=== PATIENT | male | born 1955 | race Caucasian/White ===

== ENCOUNTER 2019-03-25 21:01 | Inpatient (IN) | payer BC ==
[2019-03-25] MEDS ORDERED: FUROSEMIDE20 MG PO (21:08)
[2019-03-25] MEDS ORDERED: ADVAIR 250/501 DISK INH (21:14)
[2019-03-25 21:36] LABS: BASOPHILS 0.5 % (0-2); EOSINOPHILS 4.3 % (0-7); HEMATOCRIT 39.1 % (42.0-54.0); HEMOGLOBIN 12.9 g/dL (13.5-17.5); IMMATURE GRANULOCYTES 0.2 % (0-5); LYMPHOCYTES 29.3 % (15-50); MCH 29.3 pg (26.0-34.0); MCV 88.7 fL (80.0-100.0); MEAN PLATELET VOLUME 8.9 fL (7.4-10.4); MONOCYTES 11.4 % (2-11); NEUTROPHILS 54.3 % (40-80); PLATELET COUNT 177 10x3/uL (130-400); RBC 4.41 10x6/uL (4.20-6.10); WBC 6.1 10x3/uL (4.8-10.8)
[2019-03-25 21:44] LABS: APTT 26.7 SECONDS (22.8-39.4); INR 1.03 (0.85-1.17)
[2019-03-25 21:49] LABS: ALBUMIN 3.5 g/dL (3.4-5.0); ALKALINE PHOSPHATASE 140 U/L (46-116); ALT (SGPT) 21 U/L (10-68); CALC OSMOLALITY 280 mosm/kg (275-300); CALCIUM 8.9 mg/dL (8.5-10.1); CARBON DIOXIDE 24.7 mmol/L (21.0-32.0); CHLORIDE - SERUM 106 mmol/L (98-107); CREATININE - SERUM 1.1 mg/dL (0.6-1.3); GLUCOSE 93 mg/dL (74-106); POTASSIUM - SERUM 5.2 mmol/L (3.5-5.1); SODIUM 140 mmol/L (136-145); UREA NITROGEN 17 mg/dL (7-18); eGFR NON AFRICAN AMERICAN 71 mL/min (90-120)
[2019-03-25 22:01] LABS: CREATINE KINASE 130 UL (21-232); PRO BNP 48 pg/mL (0-125); TROPONIN-I < 0.017 ng/mL (0.000-0.060)
--- NOTE | 2019-03-25 22:39 | NUR ---
REPORT RECIEVED FROM EBER IN ER.
[2019-03-25 23:55] VITALS: BP 103/67
[2019-03-26 00:38] VITALS: BP 103/67; BMI 26.2
--- NOTE | 2019-03-26 03:27 | NUR ---
I have reviewed this patient and I concur with the Shift Assessment completed by the Licensed Practical Nurse today this shift.
[2019-03-26 03:55] VITALS: BP 98/66
--- NOTE | 2019-03-26 04:13 | NUR ---
PT RESTING WITH NO DISTRESS. NPO UNTIL SEEN BY MD IN AM. MONITOR AND CPOC.
[2019-03-26 08:05] VITALS: BP 99/62
--- NOTE | 2019-03-26 08:16 | NUR ---
AM ROUNDS COMPLETED. INTRODUCED MYSELF TO PT PRIMARY RN FOR TODAYS SHIFT. PT IS A&O LYING BACK IN BED RESTING QUIETLY WITH FAMILY AT BEDSIDE. SHIFT ASSESSMENT COMPLETED. PT STATES HE IS FEELING MUCH BETTER AFTER HIS BREATHING TREATMENT. DENIES ANY SOB OR ISSUES BREATHING. RR NONLABORED ON RA. PT IS CURRENTLY NPO HE HAD A PROCEDURE PLANNED IN OUTPATIENT WITH . WILL NOTIFY AND OUTPATIENT AND CPOC.
--- NOTE | 2019-03-26 08:27 | NUR ---
NOTIFIED JUAN DIEGO SARMIENTO WITH AND WILL KEEP PT NPO UNTIL WE FIND OUT ABOUT IF HE WILL STILL HAVE PROCEDURE. WILL ALSO FIND OUT ABOUT MORNING LABS. NO CURRENT NEEDS. PT VERBALIZED UNDERSTANDING.
[2019-03-26 09:43] LABS: BASOPHILS 0.5 % (0-2); EOSINOPHILS 3.5 % (0-7); HEMATOCRIT 38.9 % (42.0-54.0); HEMOGLOBIN 12.9 g/dL (13.5-17.5); LYMPHOCYTES 24.5 % (15-50); MCH 29.5 pg (26.0-34.0); MCHC 33.2 g/dL (31.0-37.0); MCV 88.8 fL (80.0-100.0); MEAN PLATELET VOLUME 8.3 fL (7.4-10.4); MONOCYTES 11.2 % (2-11); NEUTROPHILS 60.3 % (40-80); PLATELET COUNT 153 10x3/uL (130-400); RBC 4.38 10x6/uL (4.20-6.10); RDW 17.8 % (11.5-14.5); WBC 6.3 10x3/uL (4.8-10.8)
[2019-03-26 10:04] LABS: ALBUMIN 3.5 g/dL (3.4-5.0); ALKALINE PHOSPHATASE 129 U/L (46-116); ALT (SGPT) 19 U/L (10-68); BILIRUBIN - TOTAL 0.62 mg/dL (0.2-1.3); CALC OSMOLALITY 283 mosm/kg (275-300); CALCIUM 9.1 mg/dL (8.5-10.1); CHLORIDE - SERUM 108 mmol/L (98-107); GLUCOSE 94 mg/dL (74-106); POTASSIUM - SERUM 4.7 mmol/L (3.5-5.1); PROTEIN - SERUM 6.8 g/dL (6.4-8.2); SODIUM 142 mmol/L (136-145); UREA NITROGEN 15 mg/dL (7-18); eGFR NON AFRICAN AMERICAN 80 mL/min (90-120)
[2019-03-26 10:06] LABS: APTT 27.9 SECONDS (22.8-39.4); INR 1.04 (0.85-1.17); PROTIME 13.1 SECONDS (11.6-15.0)
--- NOTE | 2019-03-26 10:19 | NUR ---
CONSENTS OBTAINED AND PLACED IN CHART FOR PROCEDURE WITH TODAY. PT VERBALIZED UNDERSTANDING AND DENIES ANY QUESTIONS OR CONCERNS. PT IS STILL NEEDING HIS HIBICLENS SHOWER SO I WRAPPED HIS PIV AND ASSISTED HIM WITH SUPPLIES. COMMUNITY SERVICE WORKER AT BEDSIDE TO PREP AND CLIP. WILL GET CHART READY AND CPOC.
--- NOTE | 2019-03-26 10:43 | NUR ---
VERIFIED HOME MEDICATION AND PHARMACY. UPDATED WEIGHT AND HEIGHT AND PLACED ON CHART ORDERED AND MOST ACCURATE. PT IS SHOWERED AND READY FOR PROCEDURE. CONFIRMED EKG ON CHART AND CONSENTS SIGNED. NO FURTHER NEEDS.
[2019-03-26 11:38] VITALS: BP 104/64
--- NOTE | 2019-03-26 14:06 | NUR ---
SURGERY CALLED TO PRE-OP PT. PRE-OP MEDICATIONS GIVEN AND ANBX PIGGYBACK SENT TO "OR" WITH PT. NO FURTHER NEEDS AT THIS TIME.
--- NOTE | 2019-03-26 17:47 | NUR ---
PT BACK FROM PROCEDURE AWAKE A&O SITTING UP IN BED. PT HAS A DRSG TO HIS MID-UPPER STERNUM CDI, TO REMAIN IN PLACE UNTIL TUESDAY PER . VSS AND BEING MONITERED PER POST PROCEDURE. PT IS TO STAY OVERNIGHT AND SHOULD BE ABLE TO D/C TOMORROW. PT IS C/O PAIN AND REQUESTING PRN PAIN MEDICATION, PAGED ERIKA MONZON, HIGH SCHOOL FOREIGN LANGUAGE TEACHER ANIMAL PATHOLOGIST AND WILL AWAIT CALL BACK. FAMILY AT BEDSIDE. NO CURRENT NEEDS. WILL CTM.
--- NOTE | 2019-03-26 18:45 | NUR ---
VSS AND STILL BEING MONITERED PER POST PROCEDURE PROTOCOL. DID OBTAIN ORDER FOR PRN PAIN PILL AND BEDSIDE SHIFT REPORT GIVEN AND NIGHTSHIFT NURSE WILL PROVIDE TO PT. PT VOICED THANKS AND IS EATING DINNER. DENIES ANY FURTHER NEEDS.
[2019-03-26 20:00] VITALS: BP 109/67
[2019-03-26 21:32] LABS: APPEARANCE CLEAR (CLEAR); BILIRUBIN NEGATIVE (NEGATIVE); COLOR YELLOW (YELLOW); GLUCOSE NEGATIVE (NEGATIVE); KETONE NEGATIVE (NEGATIVE); NITRITE NEGATIVE (NEGATIVE); PROTEIN NEGATIVE (NEGATIVE); UROBILINOGEN NORMAL (NORMAL)
--- NOTE | 2019-03-27 00:45 | NUR ---
AWAKE AND ALERT CHANGED IV TO SALINE LOCK LCTA BUT DEMINISHED IN LOWER BASESPT ASKS FOR PRN PAIN MED AND WILL RECIEVE BED LOW AND LOCKED AND CALL LIGHT IN REACH USING URINAL
--- NOTE | 2019-03-27 02:21 | NUR ---
I have reviewed this patient and I concur with the Shift Assessment completed by the Licensed Practical Nurse today this shift.
[2019-03-27 04:00] VITALS: BP 112/69
[2019-03-27] MEDS ORDERED: ULTRAM50 MG PO (08:36)
[2019-03-27 08:49] VITALS: BP 106/66
--- NOTE | 2019-03-27 10:33 | NUR ---
D/C PTS L.HAND PIV WITH CATHETER TIP FULLY INTACT ALONG WITH L.AC PIV WITH CATHETER TIP FULLY INTACT. PT IS COLLECTING HIS BELONGINGS FOR DISCHARGE AND I HAVE SPOKE WITH NURSE ABOUT PAIN MEDICATION AND I WILL CALL IT IN.
--- NOTE | 2019-03-27 11:21 | NUR ---
DISCHARGE TEACHING PROVIDED AND PAPERS SIGNED. PT VERBALIZED UNDERSTANDING AND DENIES ANY QUESTIONS OR CONCERNS. ALL BELONGINGS COLLECTED. PT WAITING ON TRANSPORT.
--- NOTE | 2019-03-27 12:30 | NUR ---
SPOKE TO CRISTIANE AT [facility] AND CALLED IN PTS TRAMADOL ORDER PER .
--- NOTE | 2019-03-27 13:53 | MORECARE ---
CASE MANAGEMENT DISCHARGE SUMMARY PATIENT: DIXON RIZO UNIT: [id number] ADM DATE: 03/25/19 AGE: 63 : 51 SEX: M ROOM/BED: D.211 AUTHOR: NICOLAS MCCRAY PHYSICIAN: REFERRING PHYSICIAN: ROCAEL DAVIS MD DATE OF SERVICE: 03/27/19 Discharge Plan Patient Name: DIXON RIZO [facility] : 1955 Planned Disposition: Home Anticipated Discharge Date: 03/27/19 Discharge Date: 03/27/2019 Expected LOS: 2 Initial Reviewer: [email or web address] Initial Review Date: 03/27/2019 Generated: 03/27/19 2:52 pm Patient Name: DIXON RIZO Page 16994 at 1353 All edits/amendments must be made on the electronic document DICTATION DATE: 03/27/19 1352 FINISH PRODUCTION MANAGER: JOSSELIN 03/27/19 1352 RPT#: [id number] DC DATE:03/27/19 STATUS: DIS IN [facility] [address] [place] [address] END OF REPORT
--- NOTE | 2019-03-27 14:01 | MORECARE ---
CASE MANAGEMENT DISCHARGE SUMMARY PATIENT: DIXON RIZO UNIT: [id number] ADM DATE: 03/25/19 AGE: 63 : 51 SEX: M ROOM/BED: D.2112 AUTHOR: SHAZIA,DOC PHYSICIAN: REFERRING PHYSICIAN: ROCAEL DAVIS MD DATE OF SERVICE: 03/27/19 Discharge Plan Patient Name: DIXON RIZO Facility: [facility]:[place] : 1955 Planned Disposition: Home Anticipated Discharge Date: 03/27/19 Discharge Date: 03/27/2019 Expected LOS: 2 Initial Reviewer: [email or web address] Initial Review Date: 03/27/2019 Generated: 03/27/19 3:01 pm Comments DCP- Discharge Planning Updated by [email or web address]: Jah Martinez on 03/27/19 12:[address] Patient Name: DIXON RIZO Admission Status: ER Accout number: [id number] Admission Date: 03-25-2019 : 1955 Admission Diagnosis: Attending: ROCAEL DAVIS Current LOS: 2 Anticipated DC Date: 03-27-2019 Planned Disposition: Home Primary Insurance: [employer] OUT OF STATE Discharge Planning Comments: CM MET WITH PT IN ROOM TO DISCUSS DISCHARGE PLANNING AND NEEDS. PT REPORTS LIVING AT HOME INDEPENDENTLY WITH HIS SIGNIFICANT OTHER. PT HAS NO MEDICAL EQUIPMENT AND NO OUTSIDE SERVICES ASSISTING IN THE HOME. CM DISCUSSED AVAILABILITY OF HOME HEALTH, REHAB SERVICES AND MEDICAL EQUIPMENT. PT DENIES DISCHARGE NEEDS, REPORTS HIS FRIEND IS HERE TO PICK HIM UP FOR DISCHARGE HOME. LAST REPAIRER NURSE NOTIFIED. Generator Operator Straight Bevel Gear: Jah Martinez DCPIA - Discharge Planning Initial Assessment Updated by [email or web address]: Jah Martinez on 03/27/19 1:53 pm * Is the patient Alert and Oriented? Yes * How many steps to enter\exit or inside your home? * PCP DR. MONET * Pharmacy [facility] * Preadmission Environment Home with Family * ADLs Independent * Equipment None * Other Equipment NO MEDICAL EQUIPMENT PROVIDER PREFERENCE * List name and contact numbers for known caregivers / representatives who currently or will assist patient after discharge: KATHERINE ESPINOSA, SIGNIFICANT OTHER, * Verbal permission to speak to the caregivers and representatives has been obtained from the patient. N/A * Community resources currently utilized None * Please name any agencies selected above. NONE * Additional services required to return to the preadmission environment? No * Can the patient safely return to the preadmission environment? Yes * Has this patient been hospitalized within the prior 30 days at any hospital? Yes Last DP export: 03/27/19 12:53 p Patient Name: DIXON RIZO Page [id number] at 1401 All edits/amendments must be made on the electronic document DICTATION DATE: 03/27/19 1401 EXERCISE PHYSIOLOGIST: JOSSELIN 03/27/19 1401 RPT#: [id number] DC DATE:03/27/19 STATUS: DIS IN [facility] [address] [place] [address] END OF REPORT
--- NOTE | 2019-04-04 13:11 | OP ---
PATIENT NAME: DIXON RIZO MEDICAL RECORD: [id number] :[birth year] LOCATION:D.M2 D.2111 ADMISSION DATE:03/25/19 SURGEON: SHAJI CASANOVA MD DATE OF OPERATION: 03/26/2019 SURGEON: Shaji Casanova MD ANESTHESIA: General; Mario Worrell MD OPERATIONS PERFORMED: 1. Mediastinoscopy with biopsy. 2. Flexible fiberoptic bronchoscopy. PREOPERATIVE DIAGNOSIS: Nonsmall cell carcinoma, left lower lobe. POSTOPERATIVE DIAGNOSIS: Nonsmall cell carcinoma, left lower lobe. INDICATION FOR OPERATION: Positive PET scan, right paratracheal lymph node. FINDINGS AT OPERATION: Right benign-appearing paratracheal node. Multiple biopsies were taken. Frozen section was benign. There were no other nodes identified. ESTIMATED BLOOD LOSS: Less than 3 cc. DESCRIPTION OF PROCEDURE: After informed consent, adequate preoperative medication, and evaluation, the patient was brought to the operating room and placed on the table in supine position. After induction of general endotracheal anesthesia and application of appropriate monitoring devices, the neck and chest were prepped and draped in sterile field utilizing Betadine scrub, alcohol, and Betadine solution. Betadine-impregnated drape was also used. A small transverse incision was made 2 cm below the sternal notch. Dissection was carried down to the tracheal fascia. The fascia was opened. The scope was introduced and advanced utilizing sharp and blunt dissection. The right paratracheal area just above the right mainstem bronchus was dissected and a large lymph node was identified. This was aspirated. No bleeding. Multiple biopsies were taken. Frozen section demonstrated a benign node. It was a benign-appearing node. Neck was irrigated. Instrument count and sponge count were correct times 2. Neck was closed in layers utilizing 3-0 Vicryl on the platysma and 5-0 subcuticular Monocryl on the skin. Sterile dressings were applied. The patient then underwent flexible fiberoptic bronchoscopy and there were no endobronchial lesions noted. TRANSINT:[id number] Voice Confirmation ID: [id number] DOCUMENT ID: [id number] SHAJI CASANOVA MD at 1311 CC: [id number] DICTATION DATE: 03/26/19 1632 EMBOSSING CALENDER OPERATOR: 03/26/192009 DIS IN 03/27/[address] [place] [address]
== END 2019-03-27 12:42 | disposition home or self-care (01) | DRG 168 ==
LOC: D.ER 21:01 → D.M2 21:38
PROVIDERS: Family Medicine; Internal Medicine Cardiovascular Disease; ADMIT Internal Medicine Nephrology; ATTEND Internal Medicine Nephrology
PROC: 07B74ZX Excision of Thorax Lymphatic, Percutaneous Endoscopic Approach, Diagnostic (ICD-10-PCS; principal; 2019-03-26)
PROC: 0BJ08ZZ Inspection of Tracheobronchial Tree, Via Natural or Artificial Opening Endoscopic (ICD-10-PCS; 2019-03-26)
DX: C34.90 Malignant neoplasm of unspecified part of unspecified bronchus or lung (principal); R06.00 Dyspnea, unspecified; J44.9 Chronic obstructive pulmonary disease, unspecified

== ENCOUNTER 2019-04-09 13:36 | Inpatient (IN) | payer BC, MEDICARE ==
[~2019-04-09] VITALS: Ht 193 cm; Wt 98.7 kg
--- NOTE | ~2019-04-09 | OP ---
PATIENT NAME: DIXON RIZO MEDICAL RECORD: [id number] :51 LOCATION:[facility] D.CV08 ADMISSION DATE:04/13/19 SURGEON: MICH REYNAGA MD DATE OF OPERATION: 04/13/2019 SURGEON: Mich Reynaga MD DIRECTOR OF RELIGIOUS ACTIVITIES: Korey Mota MD ANESTHESIA: General endotracheal, Dr. Kendall. OPERATION PERFORMED: 1. Left thoracotomy and left lower and lingular lobe resection. 2. Left mediastinal lymphadenectomy. 3. Flexible fiberoptic bronchoscopy. PREOPERATIVE DIAGNOSIS: Non-small cell carcinoma of left lower lobe. POSTOPERATIVE DIAGNOSIS: Left lower lobe tumor invading the lingula. INDICATION FOR OPERATION: Carcinoma of the left lower lobe. FINDINGS OF THE OPERATION: The tumor in the left lower lobe was invading the distal lingula. There were no nodes at level 6 or level 5 identified. There was an N1 node posterior to the main stem bronchus that was sent separately. The rest of the level 10 nodes were sent with the specimen. There were no nodes at level 8 or 9. ESTIMATED BLOOD LOSS: Less than 150 mL. DESCRIPTION OF PROCEDURE: After informed consent, adequate preoperative medication evaluation, the patient was brought to the operating room, placed on the table in the supine position. After induction of general endotracheal anesthesia and application of appropriate monitoring devices, the patient underwent flexible fiberoptic bronchoscopy and placement of a double lumen tube. The patient was then turned in a right lateral decubitus position, protecting the pressure points and neurological structures. The left chest was then prepped and draped in a sterile field, utilizing Betadine scrub, alcohol, and Betadine solution. Betadine-impregnated drape was also used. A small posterolateral thoracotomy incision was made and dissection carried down the fascia. Hemostasis maintained with electrocautery. The fifth interspace was opened. The chest entered. There were small adhesions to the pericardium that were lysed with the Harmonic scalpel. There was neovascularization in the inferior pulmonary ligament. This was also divided to the level of the inferior pulmonary vein utilizing the Harmonic scalpel. The inferior pulmonary vein was then dissected free of surrounding structures and encircled with a vessel loop. The fissure was incomplete and the tumor appeared to cross into the left lingula. Dissection was then carried out in the major fissure. Dissection carried down to the bronchus and dissection carried down to the pulmonary artery. The pulmonary artery was then dissected medially, laterally and inferiorly and encircled with a vessel loop. The lymph nodes were dissected with the lower lobe. Dr. Mota participated in the dissection and resection of the lower and lingular lobe as well as the mediastinal dissection. The dissection was then carried out OPERATIVE REPORT [id number] DARRIUSDIXON WONG anteriorly around the bronchus and the bronchi to the lower lobe identified. The pulmonary artery was then divided with an Endo-ASHOK stapler as well as the inferior pulmonary vein. Dissection was then carried out around the bronchi. The bronchi were divided with a TA 34.8 stapler. The specimen was then sent to pathology. The chest was irrigated. Careful dissection was made at the level 5-6 area with no nodes identified. There were no lymph nodes at level 7. The dissection posteriorly was an N1 node that was sent to pathology, 9 and level 8 had no lymph nodes however. The chest was again irrigated. Instrument count and sponge count were correct times 2. A #28 chest tube was placed anteriorly and superiorly and a 28 tube inferiorly and posteriorly. Chest was again irrigated. Instrument count and sponge count were correct times 2. Chest was closed in layers utilizing #2 Vicryl pericostal sutures, #1 Vicryl on the muscle, 2-0 Vicryl on subcutaneous tissue and skin approximated with 3-0 subcuticular Vicryl. Sterile dressings were applied. The patient tolerated the procedure well and was placed in the supine position. The patient underwent flexible fiberoptic bronchoscopy. The lower lobe stump was satisfactory and there was no endobronchial lesion on either side of mucus or blood. The scope was removed. The patient was awakened and transferred to the CV ICU in satisfactory condition. TRANSINT:[id number] Voice Confirmation ID: [id number] DOCUMENT ID: [id number] MICH REYNAGA MD CC: [id number] DICTATION DATE: 04/13/19 1209 SURVEYING TECHNICIAN: 04/13/19 1340 ADM IN [facility] [id number] [place] [address]
[~2019-04-09 13:36] MED LIST: ADVAIR 250/501 DISK INH; FUROSEMIDE20 MG PO; ULTRAM50 MG PO
[2019-04-10] MEDS ORDERED: KLONOPIN1 MG PO (12:38)
[2019-04-10 13:21] LABS: HEMATOCRIT 40.7 % (42.0-54.0); HEMOGLOBIN 13.3 g/dL (13.5-17.5); MCH 29.5 pg (26.0-34.0); MCHC 32.7 g/dL (31.0-37.0); MCV 90.2 fL (80.0-100.0); MEAN PLATELET VOLUME 8.6 fL (7.4-10.4); RBC 4.51 10x6/uL (4.20-6.10); RDW 15.4 % (11.5-14.5); WBC 7.3 10x3/uL (4.8-10.8)
[2019-04-10 13:22] LABS: APPEARANCE CLEAR (CLEAR); BILIRUBIN NEGATIVE (NEGATIVE); COLOR YELLOW (YELLOW); GLUCOSE NEGATIVE (NEGATIVE); KETONE NEGATIVE (NEGATIVE); NITRITE NEGATIVE (NEGATIVE); PROTEIN NEGATIVE (NEGATIVE); SPECIFIC GRAVITY 1.015 (1.005-1.020); UROBILINOGEN NORMAL (NORMAL)
[2019-04-10 13:30] LABS: ALBUMIN 3.5 g/dL (3.4-5.0); ANION GAP 9.5 mmol/L (8-16); BILIRUBIN - TOTAL 0.36 mg/dL (0.2-1.3); CALCIUM 8.6 mg/dL (8.5-10.1); CARBON DIOXIDE 30.4 mmol/L (21.0-32.0); CREATININE - SERUM 1.1 mg/dL (0.6-1.3); POTASSIUM - SERUM 3.9 mmol/L (3.5-5.1); PROTEIN - SERUM 7.1 g/dL (6.4-8.2)
[2019-04-10 13:32] LABS: APTT 29.2 SECONDS (22.8-39.4); INR 1.02 (0.85-1.17); PROTIME 12.9 SECONDS (11.6-15.0)
[2019-04-13] VITALS (17 sets, daily range): BP systolic 97–119; BP diastolic 52–72; BMI 26.3
--- NOTE | 2019-04-13 11:54 | NUR ---
PT ARRIVED IN THE UNIT. PT CONNECTED TO ICU MONITORS. PT NOT ON ANY GTTS. IV FLUID TURNED DOWN TO 30 CC PER ORDERS. PT GROGGY FROM ANESTESIA BUT FOLLOWING COMMANDS. 10L VIA SIMPLE MASK. NSR ON THE MONITOR. VSS AT THIS TIME. LEFT CVL NOTED. C/D/I. LEFT UPPER BACK DRESSING C/D/I. LEFT LATERAL CHEST TUBES X2 NOTED LABLED A & P. BOTH CT'S CONNECTED TO [address] A, AIR LEAK NOTED. CT P, NO AIR LEAK NOTED. FC NOTED WITH CLEAR, YELLOW URINE. R RADIAL LIZA NOTED. C/D/I. WRIST PROTECTOR ON. A-LINE POSITIONAL. CALL LIGHT IN REACH. WILL CONT POC.
--- NOTE | 2019-04-13 15:14 | NUR ---
PT PULLED ABOUT 500-750 ON HIS IS. ONLY PULLED OVER 1000 ONCE. VERY WEAK COUGH NOTED. PT EDUCATED ABOUT TCDB. WILL CONT POC.
[2019-04-14] VITALS (23 sets, daily range): BP systolic 97–127; BP diastolic 52–66
--- NOTE | 2019-04-14 00:39 | NUR ---
1900 REPORT RECEIVED CARE ASSUMED ASSESSMENT DONE SEE FLOW SHEET VSS. IS 750-1000. 2100 MEDS GIVEN PER DEC. VSS. 2300 REASSESSMENT DONE SEE FLOW SHEET VSS. IS 1351-9297. 0039 OXYGEN TITRATED OFF AT THIS TIME. SPO2 97. VSS WILL CONTINUE TO MONITOR.
[2019-04-14 04:29] LABS: HEMATOCRIT 35.2 % (42.0-54.0); HEMOGLOBIN 11.5 g/dL (13.5-17.5); MCH 28.9 pg (26.0-34.0); MCHC 32.7 g/dL (31.0-37.0); MCV 88.4 fL (80.0-100.0); MEAN PLATELET VOLUME 8.5 fL (7.4-10.4); RBC 3.98 10x6/uL (4.20-6.10); RDW 14.9 % (11.5-14.5); WBC 9.1 10x3/uL (4.8-10.8)
[2019-04-14 04:42] LABS: ALBUMIN 2.7 g/dL (3.4-5.0); ALKALINE PHOSPHATASE 118 U/L (46-116); ALT (SGPT) 14 U/L (10-68); BILIRUBIN - TOTAL 0.63 mg/dL (0.2-1.3); CALC OSMOLALITY 277 mosm/kg (275-300); CALCIUM 8.2 mg/dL (8.5-10.1); CARBON DIOXIDE 27.5 mmol/L (21.0-32.0); CHLORIDE - SERUM 106 mmol/L (98-107); CREATININE - SERUM 0.8 mg/dL (0.6-1.3); GLUCOSE 113 mg/dL (74-106); POTASSIUM - SERUM 4.1 mmol/L (3.5-5.1); PROTEIN - SERUM 5.9 g/dL (6.4-8.2); SODIUM 139 mmol/L (136-145); UREA NITROGEN 10 mg/dL (7-18); eGFR NON AFRICAN AMERICAN > 90 mL/min (90-120)
--- NOTE | 2019-04-14 05:00 | NUR ---
0300 REASSESSMENT DONE SEE FLOW SHEET VSS. 0500 IO COLLECTED DAILY WEIGHT COLLECTED VSS WILL CONTINUE TO MONITOR.
--- NOTE | 2019-04-14 08:03 | NUR ---
PT REPOSITIONED IN BED. BREAKFAST TRAY SERVED. PT EATING BREAKFAST WITH MODERATE ASSIST WITH MEAL TRAY SET UP.
--- NOTE | 2019-04-14 10:23 | NUR ---
DR BAUTISTA WITH ANESTHESIA HERE.
--- NOTE | 2019-04-14 12:10 | NUR ---
DR BEAUCHAMP HERE ON ROUNDS. PT INSTRUCTED TO USE I.S. PT PULLS 1000 WITH FAIR EFFORT. INSTRUCTED TO US I.S. Q1H.
--- NOTE | 2019-04-14 15:47 | NUR ---
ART LINE RT RADIAL DCD. PRESSURE HELD. DSNG APPLIED. PT GARRY WELL.
--- NOTE | 2019-04-14 17:05 | NUR ---
DSNG TO CT SITE CHANGED.
--- NOTE | 2019-04-14 23:00 | NUR ---
1900 ASSESSMENT DONE SEE FLOW SHEET VSS. 2100 MEDS GIVEN PER MAR WATER PROVIDED. 2300 REASSESSMENT DONE SEE FLOW SHEET. VSS
[2019-04-15] VITALS (25 sets, daily range): BP systolic 93–116; BP diastolic 56–71
--- NOTE | 2019-04-15 03:00 | NUR ---
0100 WATER PROVIDED PER PT REQUEST. VSS. 0300 REASSESSMENT DONE SEE FLOW SHEET. [facility] BATH.
--- NOTE | 2019-04-15 05:00 | NUR ---
IO COLLECTED. DAILY WEIGHT COLLECTED. VSS. WATER PROVIDED PER REQUEST.
[2019-04-15 05:49] LABS: HEMATOCRIT 34.7 % (42.0-54.0); HEMOGLOBIN 11.4 g/dL (13.5-17.5); MCH 29.1 pg (26.0-34.0); MCHC 32.9 g/dL (31.0-37.0); MCV 88.5 fL (80.0-100.0); MEAN PLATELET VOLUME 8.3 fL (7.4-10.4); RBC 3.92 10x6/uL (4.20-6.10); RDW 15.1 % (11.5-14.5); WBC 8.8 10x3/uL (4.8-10.8)
[2019-04-15 06:02] LABS: ALBUMIN 2.5 g/dL (3.4-5.0); ALKALINE PHOSPHATASE 107 U/L (46-116); ALT (SGPT) 15 U/L (10-68); BILIRUBIN - TOTAL 0.57 mg/dL (0.2-1.3); CALC OSMOLALITY 274 mosm/kg (275-300); CALCIUM 7.9 mg/dL (8.5-10.1); CARBON DIOXIDE 28.8 mmol/L (21.0-32.0); CHLORIDE - SERUM 104 mmol/L (98-107); CREATININE - SERUM 0.8 mg/dL (0.6-1.3); GLUCOSE 94 mg/dL (74-106); PROTEIN - SERUM 5.8 g/dL (6.4-8.2); SODIUM 138 mmol/L (136-145); UREA NITROGEN 10 mg/dL (7-18); eGFR NON AFRICAN AMERICAN > 90 mL/min (90-120)
--- NOTE | 2019-04-15 08:11 | NUR ---
MEAL TRAY PROVIDED AND PT FEEDS SELF WITH OUT PROBLEMS.
--- NOTE | 2019-04-15 11:30 | NUR ---
DR BAUTISTA WITH ANESTHESIA HERE THIS AM. INSTRUCTED IMPORTANCE OF FREQUENT USE OF I.S. PT VERB UNDERSTANDING.
--- NOTE | 2019-04-15 19:55 | NUR ---
BEDSIDE SHIFT REPORT GIVEN BY DEPARTING RN. PT LAYING IN BED WITH EYES CLOSED COUGHING. DENIES ANY PAIN. AAOX4. PERRLA. CTX2 NOTED. LEFT CVL NOTED. F/C NOTED AND DRAINING CLEAR YELLOW URINE TO GRAVITY. VSS. ASSESSMENT COMPLETE. SEE FLOWSHEET FOR DETAILS. REPOSITIONED. PT USING IS Q30 MINUTES. SAFETY MEASURES IN PLACE. CBIR.
--- NOTE | 2019-04-15 21:01 | NUR ---
CHOCOLATE PUDDING PROVIDED NIGHT TIME SNACK. FRESH ICE WATER PROVIDED. NO OTHER NEEDS VERBALIZED.
--- NOTE | 2019-04-15 23:32 | NUR ---
REASSESSMENT COMPLETE. NO NEW CHANGES IN PT CONDITION. REPOSITIONED. TOLERATED WELL. DENIES ANY PAIN OR NEEDS AT THIS TIME. VSS. SAFETY MEASURES IN PLACE. CBIR.
[2019-04-16] VITALS (24 sets, daily range): BP systolic 100–121; BP diastolic 53–86; BMI 27.3
--- NOTE | 2019-04-16 01:22 | NUR ---
REPOSITIONED FOR COMFORT. TOLERATED WELL.
--- NOTE | 2019-04-16 03:17 | NUR ---
REASSESSMENT COMPLETE. NO NEW CHANGES NOTED IN PT CONDITION. VSS. NEEDS REINFORCEMENT TO USE IS. SAFETY MEASURES IN PLACE. CBIR.
--- NOTE | 2019-04-16 05:45 | NUR ---
CHG BATH GIVEN. HAIR SHAMPOOED. LINENS CHANGED. ELECTRODES REPLACED. VSS. TOLERATED WELL. SAFETY MEASURES IN PLACE. CBIR.
[2019-04-16 06:25] LABS: HEMATOCRIT 36.9 % (42.0-54.0); HEMOGLOBIN 12.2 g/dL (13.5-17.5); MCH 29.1 pg (26.0-34.0); MCHC 33.1 g/dL (31.0-37.0); MCV 88.1 fL (80.0-100.0); MEAN PLATELET VOLUME 8.6 fL (7.4-10.4); RBC 4.19 10x6/uL (4.20-6.10)
[2019-04-16 06:42] LABS: ALBUMIN 2.6 g/dL (3.4-5.0); ALKALINE PHOSPHATASE 98 U/L (46-116); BILIRUBIN - TOTAL 0.43 mg/dL (0.2-1.3); CALC OSMOLALITY 277 mosm/kg (275-300); CALCIUM 8.7 mg/dL (8.5-10.1); CARBON DIOXIDE 29.8 mmol/L (21.0-32.0); CHLORIDE - SERUM 105 mmol/L (98-107); CREATININE - SERUM 0.8 mg/dL (0.6-1.3); GLUCOSE 98 mg/dL (74-106); POTASSIUM - SERUM 4.4 mmol/L (3.5-5.1); PROTEIN - SERUM 6.4 g/dL (6.4-8.2); SODIUM 140 mmol/L (136-145); UREA NITROGEN 11 mg/dL (7-18); eGFR NON AFRICAN AMERICAN > 90 mL/min (90-120)
[2019-04-16 06:43] LABS: ALT (SGPT) 20 U/L (10-68)
--- NOTE | 2019-04-16 09:30 | NUR ---
0700 REPORT RECIEVED, PT AAOX4. CHEST TUBE X2 LEFT LAT SIDE TO 20CM SUCTION, DRAINING SEROSANG FLUID IN BOTH CT. SMALL AIR LEAK NOTED IN POST. CT. DRESSING SITE CDI. INCISION ON LEFT LAT SIDE, DRESSING CDI. NORMAL SINUS RHYTHM, INCENTIVE SPIROMETER REINFORCED FOR EVERY HOUR. EPIDURAL SHIPBUILDING DRAFTSPERSON IN LEFT UPPER BACK, DRESSING CDI, SEE EPIDURAL FLOWSHEET. CRITICORE CATH IN PLACE, CLEAR YELLOW URINE. DENIES PAIN, CALL LIGHT IN REACH, WILL CONTINUE PLAN OF CARE. 0900 AAOX4, BREAKFAST TRAY IN ROOM, SITTING UP IN BED, NO COMPLAINTS OF PAIN.
--- NOTE | 2019-04-16 10:19 | NUR ---
DR FISHER NURSE TORSTEN DONALDSON POSTERIOR CHEST TUBE, DRESSING CHANGED ON INCISION WELL CHEST TUBE SITE.
--- NOTE | 2019-04-16 11:30 | NUR ---
SALIMAD CRITICORE THOMAS.
--- NOTE | 2019-04-16 13:06 | NUR ---
ASSISTED PATIENT TO CHAIR WITH PHYSICAL THERAPY
--- NOTE | 2019-04-16 17:25 | NUR ---
PT SITTING IN CHAIR, AAOX4, FEET ELEVATED ON PILLOW.
--- NOTE | 2019-04-16 19:00 | NUR ---
BEDSIDE SHIFT REPORT GIVEN BY DEPARTING RN. PT LAYING IN BED WATCHING TV. AAOX4. PERRLA. DENIES ANY NEEDS AT THIS TIME. USES URINAL WITH EASE. REFUSES REPOSITIONING AT THIS TIME. EDUCATION PROVIDED ON WHY IT IS IMPORTANT TO REPOSITION. PT VERBALIZES UNDERSTANDING, YET CONTINUES TO REFUSE. WILL TRY AGAIN LATER. C/O 10/10 PAIN. ENCOURAGED USAGE OF WHISTLE PUNK PUMP. ASSESSMENT COMPLETE. SEE FLOWSHEET FOR DETAILS. SAFETY MEASURES IN PLACE. CBIR.
--- NOTE | 2019-04-16 20:27 | NUR ---
O2 SAT DROPPING TO MID 80'S. PT REFUSES TO COUGH SAYS "I'LL DO IT LATER". EDUCATION PROVIDED. ENCOURAGED TO TAKE A DEEP BREATH. PT SHOOK HIS HEAD NO AND WOULD NO RESPOND TO NURSE. 2L NC PLACED. REPOSITIONED.
--- NOTE | 2019-04-16 23:33 | NUR ---
REASSESSMENT COMPLETE. NO NEW CHANGES IN PT CONDITION. O2 SAT CONTINUES TO REMAIN ABOVE 95% WITH THE HELP OF 2L NC. C/O PAIN RATING A 10/10. COMMUNITY SERVICE SPECIALIST PUMP USAGE ENCOURAGED. VSS. SAFETY MEASURES IN PLACE. CBIR.
[2019-04-17] VITALS (23 sets, daily range): BP systolic 96–134; BP diastolic 53–88; Ht 193 cm; Wt 98.7 kg
--- NOTE | 2019-04-17 01:09 | NUR ---
RESTING IN BED COMFORTABLY. NO SS OF DISTRESS. VSS. REPOSITIONED FOR COMFORT.
--- NOTE | 2019-04-17 03:37 | NUR ---
REPOSITIONED. FRESH ICE WATER PROVIDED. TOLERATED WELL.
--- NOTE | 2019-04-17 07:00 | NUR ---
REPORT RECEVIEVED FROM THE OFF GOING RN. SEE ASSESSMENT IN THE PTS FLOW SHEET. PT NSR ON THE MONITOR. VSS AT THIS TIME. PT LYING IN BED. PT ON 2L VIA NC. LEFT SUBCLAVIAN CVL NOTED. DRESSING C/D/I. SEE IV FLUIDS IN THE PTS FLOW SHEET. PT USING MORPHINE MIDDLEWARE SOLUTIONS ARCHITECT. MIDDLEWARE SOLUTIONS ARCHITECT TEACHING GIVEN A REMINDER. RIGHT LATERAL CT IN PLACE TO WATER SEAL. NO AIR LEAK NOTED. SEROUS DRAINAGE NOTED. RIGHT UPPER BACK DRESSING C/D/I. PT ASSISTED OOB AND INTO HIS BEDSIDE CHAIR. PT MOANING AND GROANING IN PAIN. INSTRUCTED THE PT TO USE A PILLOW TO SPLINT HIS CHEST. PT PRESSING HIS MIDDLEWARE SOLUTIONS ARCHITECT. PT IN INSTRUCTED TO USE HIS IS 10X'S/H. PT PULLS ABOUT [id number] AND HIT 2000 ONCE. PT STATED THAT HE WAS NOT GOING TO COUGH. EDUCATED THE IMPORTANCE OF COUGHING. PT FINALLY NOTED TO HAVE A SEMI WEAK COUGH. BREAKFAST TRAY PROVIDED FOR THE PT. CALL LIGHT IN REACH. WILL CONT POC.
--- NOTE | 2019-04-17 08:56 | NUR ---
HEARD FROM THE NURSING STATION THAT THE PT WAS USING HIS IS AND COUGHING DEEP.
--- NOTE | 2019-04-17 09:20 | NUR ---
DR REYNAGA AT THE PTS BEDSIDE. HE WAS MADE AWARE OF THE PTS PAIN.
--- NOTE | 2019-04-17 09:46 | NUR ---
PHYSICAL THEARPY AT THE PTS BEDSIDE. PT AMBULATED WITH PHYSICAL THEARPY WITH A ROLLING WALKER. PT TOOK SMALL. ONLY AMBULATED FROM HIS BEDSIDE CHAIR TO OUT HIS DOOR WAY AND BACK INTO BED.
--- NOTE | 2019-04-17 10:42 | NUR ---
TORSTEN ADAMSON PULLED CT PER DR FISHER ORDERS. DRESSING APPLIED. SITE C/D/I. PT TOLERATED WELL.
--- NOTE | 2019-04-17 11:42 | NUR ---
PT C/O HEART BURN. SEE ORDERS AND MAR.
--- NOTE | 2019-04-17 12:40 | NUR ---
FULL CHD BED BATH GIVEN. PT ASSISTED OOB AND INTO THE BEDSIDE CHAIR. LUNCH TRAY PROVIDED FOR THE PT.
--- NOTE | 2019-04-17 14:51 | NUR ---
PT ASSISTEDD TO THE BATHROOM AND BACK TO HIS BEDSIDE CHAIR.
--- NOTE | 2019-04-17 19:23 | MORECARE ---
CASE MANAGEMENT DISCHARGE SUMMARY PATIENT: DIXON RIZO UNIT: [id number] ADM DATE: 04/13/19 AGE: 63 : 51 SEX: M [facility] AUTHOR: NICOLAS MCCRAY PHYSICIAN: REFERRING PHYSICIAN: SHAJI REYNAGA MD DATE OF SERVICE: 04/17/19 Discharge Plan Patient Name: DIXON RIZO [facility] [facility] 1955 Planned Disposition: Home with Home Health Anticipated Discharge Date: Discharge Date: Expected LOS: Initial Reviewer: [email or web address] Initial Review Date: 04/17/2019 Generated: 04/17/19 8:22 pm Patient Name: DIXON RIZO Page 64057 at 1923 All edits/amendments must be made on the electronic document DICTATION DATE: 04/17/191921 AMBULANCE DRIVER PARAMEDIC: JOSSELIN 04/17/191921 RPT#: [id number] DC DATE: STATUS: ADM IN [facility] [address] [place] [address] END OF REPORT
--- NOTE | 2019-04-17 19:30 | MORECARE ---
CASE MANAGEMENT DISCHARGE SUMMARY PATIENT: DIXON RIZO UNIT: [id number] ADM DATE: 04/13/19 AGE: 63 : [birth year] SEX: M ROOM/BED: D[facility] AUTHOR: SHAZIA,DOC PHYSICIAN: REFERRING PHYSICIAN: SHAJI REYANGA MD DATE OF SERVICE: 04/17/19 Discharge Plan Patient Name: DIXON RIZO Facility: [facility]:[place] : 1955 Planned Disposition: Home with Home Health Anticipated Discharge Date: Discharge Date: Expected LOS: Initial Reviewer: [email or web address] Initial Review Date: 04/17/2019 Generated: 04/17/19 8:29 pm Comments DCP- Discharge Planning Updated by [email or web address]: Charlene De La Cruz on 04/17/19 6:[address] Patient Name: DIXON RIZO Admission Status: Elective Accout number: [id number] Admission Date: 04-13-2019 : 1955 Admission Diagnosis: Attending: SHAJI REYNAGA Current LOS: 4 Anticipated DC Date: Planned Disposition: Home with Home Health Primary Insurance: [employer] OUT OF STATE Discharge Planning Comments: CM met with patient and significant other (Francesca) at bedside after explaining CM role and obtaining verbal consent. Patient lives at home with Francesca and plans to return there upon discharge. Patient feels this would be a safe discharge. CM discussed availability / needs of home health and medical equipment. Patient states that he would feel better if he had Home Health at discharge. CM will get in contact with PCP to see if she will follow HH. CM will get PHILLIP in am for HH. Patient denies any discharge needs at this time. Patient states he will have Francesca drive him home upon discharge. CM will continue to follow and assist as needed with discharge planning / needs. Upholsterer Apprentice: Charlene De La Cruz DCPIA - Discharge Planning Initial Assessment Updated by [email or web address]: Charlene De La Cruz on 04/17/19 7:23 pm * Is the patient Alert and Oriented? Yes * How many steps to enter\exit or inside your home? * PCP Varsha Hines MD * [facility] * Preadmission Environment Home with Family * ADLs Independent * Other Equipment cane, walking stick * List name and contact numbers for known caregivers / representatives who currently or will assist patient after discharge: Francesca Ramirez - significant other- [phone] * Verbal permission to speak to the caregivers and representatives has been obtained from the patient. Yes * Community resources currently utilized None * Additional services required to return to the preadmission environment? No * Can the patient safely return to the preadmission environment? Yes * Has this patient been hospitalized within the prior 30 days at any hospital? Yes Last DP export: 04/17/19 6:23 p Patient Name: DIXON RIZO Page [id number] at 1930 All edits/amendments must be made on the electronic document DICTATION DATE: 04/17/191928 JIRA ADMINISTRATOR: JOSSELIN 04/17/191928 RPT#: [id number] DC DATE: STATUS: ADM IN [facility] [address] [place] [address] END OF REPORT
[2019-04-18] VITALS (23 sets, daily range): BP systolic 97–131; BP diastolic 56–86
--- NOTE | 2019-04-18 07:00 | NUR ---
REC'D REPORT AND RESUMED CARE, UP IN CHAIR, O2 VIA NC, VSS, C/O OF NAUSEA, AND PAIN 05/12, RESERVE OFFICER IN USE AND ENCOURAGED, ASSESSMENT COMPLETED PER FLOWSHEET, CALL LIGHT IN REACH, NO NEEDS AT THIS TIME
--- NOTE | 2019-04-18 08:30 | NUR ---
CALLED TO ROOM, NAUSEATED, ZOFRAN 4MG IVP GIVEN PER MAR FLOWSHEET
--- NOTE | 2019-04-18 09:27 | NUR ---
NAUSEA BETTER, MORNING MEDS GIVEN PER DEC FLOWSHEET, TOLERATED WITHOUT DIFFICULTY
--- NOTE | 2019-04-18 09:48 | NUR ---
AMBULATED WITH PT, 250 FT, TOELRATED WITH STAND BY ASSIST, BACK TO ROOM AND UP IN CHAIR, PT WILL RECOMMEND WALKER USE AT HOME
--- NOTE | 2019-04-18 11:00 | NUR ---
UP IN CHAIR WITH NO SIGN OF DISTRESS, VSS, CALL LIGHT IN REACH, NO NEEDS AT THIS TIME
--- NOTE | 2019-04-18 12:05 | NUR ---
DARSHAN EDWARDS TO SABRINA, INDEPENDENT WITH SET UP AND EATING
--- NOTE | 2019-04-18 14:26 | NUR ---
Nutrition Follow Up: Chart reviewed Diet: AHA PO Intake: 90% meal avg Wt stable I>O Meds and labs reviewed Rec continue current day. RD following.
--- NOTE | 2019-04-18 15:00 | NUR ---
UP IN CHAIR, DENIES PAIN, ROLLER REPAIRER MORPHINE IN USE, VSS, ASSESSMENT COMPLETED PER FLOWSHEET, NO AUCTE CHANGE FROM PREVIOUS, CALL LIGHT IN REACH, AT BEDSIDE, NO NEEDS AT THIS TIME
--- NOTE | 2019-04-18 17:57 | NUR ---
USING STERILE TECHNIQUE, LEFT SUBCLAVIAN DRESSING CHANGE. NO S/SX OF INFECTION NOTED. PT TOLERATED WELL. WILL CONT POC.
--- NOTE | 2019-04-18 18:14 | MORECARE ---
CASE MANAGEMENT DISCHARGE SUMMARY PATIENT: DIXON RIZO UNIT: [id number] ADM DATE: 04/13/19 AGE: 63 : 53 SEX: M [facility] AUTHOR: SHAZIA,DOC PHYSICIAN: REFERRING PHYSICIAN: SHAJI REYNAGA MD DATE OF SERVICE: 04/18/19 Discharge Plan Patient Name: DIXON RIZO Facility: [facility]:[place] : 1955 Planned Disposition: Home with Home Health Anticipated Discharge Date: Discharge Date: Expected LOS: Initial Reviewer: [email or web address] Initial Review Date: 04/17/2019 Generated: 04/18/19 7:13 pm Comments DCP- Discharge Planning Updated by [email or web address]: Charlene De La Cruz on 04/18/19 5:[address] CM contacted Dr. Varsha Hines MD [phone] to see if she would follow patient on Home Health. Rose Marie with their office stated that patient will need an office appointment after discharge and at that time if Dr. Varsha Hines, sees need for home health she will order it then. CM will let patient and nursing know this information. CM will continue to follow and assist as needed with discharge planning / needs. DCP- Discharge Planning Updated by [id number]: Charlene De La Cruz on 04/17/19 6:[address] Patient Name: DIXON RIZO Admission Status: Elective Accout number: [id number] Admission Date: 04-13-2019 : 1955 Admission Diagnosis: Attending: SHAJI REYNAGA Current LOS: 4 Anticipated DC Date: Planned Disposition: Home with Home Health Primary Insurance: [facility] OUT OF STATE Discharge Planning Comments: CM met with patient and significant other (Francesca) at bedside after explaining CM role and obtaining verbal consent. Patient lives at home with Francesca and plans to return there upon discharge. Patient feels this would be a safe discharge. CM discussed availability / needs of home health and medical equipment. Patient states that he would feel better if he had Home Health at discharge. CM will get in contact with PCP to see if she will follow HH. CM will get PHILLIP in am for HH. Patient denies any discharge needs at this time. Patient states he will have Francesca drive him home upon discharge. CM will continue to follow and assist as needed with discharge planning / needs. Drawing Kiln Supervisor: Charlene CHACON - Discharge Planning Initial Assessment Updated by [email or web address]: Charlene De La Cruz on 04/17/19 7:23 pm * Is the patient Alert and Oriented? Yes * How many steps to enter\exit or inside your home? * PCP Varsha Hines MD * Pharmacy [facility] * Preadmission Environment Home with Family * ADLs Independent * Other Equipment cane, walking stick * List name and contact numbers for known caregivers / representatives who currently or will assist patient after discharge: Francesca Ramirez - significant other- [phone] * Verbal permission to speak to the caregivers and representatives has been obtained from the patient. Yes * Community resources currently utilized None * Additional services required to return to the preadmission environment? No * Can the patient safely return to the preadmission environment? Yes * Has this patient been hospitalized within the prior 30 days at any hospital? Yes Last DP export: 04/17/19 6:29 p Patient Name: DIXON RIZO Page 12225 at 1814 All edits/amendments must be made on the electronic document DICTATION DATE: 04/18/191812 FOREIGN FOOD COOK SPECIALTY: JOSSELIN 04/18/191812 RPT#: [id number] DC DATE: STATUS: ADM IN [facility] [address] [place] [address] END OF REPORT
--- NOTE | 2019-04-18 19:00 | NUR ---
SHIFT ASSESSMENT COMPLETE. VS STABLE. NO VISUAL CUES OF DISTRESS NOTED. WILL CONTINUE TO MONITOR.
--- NOTE | 2019-04-18 21:00 | NUR ---
VS STABLE. NO VISUAL CUES OF DISTRESS NOTED. WILL CONTINUE TO MONITOR.
--- NOTE | 2019-04-18 23:00 | NUR ---
VS STABLE. NO VISUAL CUES OF DISTRESS NOTED. WILL CONTINUE TO MONITOR.
--- NOTE | 2019-04-18 23:00 | NUR ---
VS STABLE. NO VISUAL CUES OF DISTRESS NOTED. WILL CONTINUE TO MONITOR.
[2019-04-19] VITALS (23 sets, daily range): BP systolic 97–128; BP diastolic 49–92
--- NOTE | 2019-04-19 01:00 | NUR ---
VS STABLE. NO VISUAL CUES OF DISTRESS NOTED. WILL CONTINUE TO MONITOR.
--- NOTE | 2019-04-19 03:00 | NUR ---
VS STABLE. NO VISUAL CUES OF DISTRESS NOTED. WILL CONTINUE TO MONITOR.
--- NOTE | 2019-04-19 05:00 | NUR ---
VS STABLE. NO VISUAL CUES OF DISTRESS NOTED. WILL CONTINUE TO MONITOR.
--- NOTE | 2019-04-19 11:00 | NUR ---
PT UP IN CHAIR, VITALS STABLE, NORMAL SINUS RHYTHM, BROTHER IN ROOM WITH PATIENT.
--- NOTE | 2019-04-19 13:00 | NUR ---
PT UP IN CHAIR, FAMILY IN ROOM. VITALS STABLE
--- NOTE | 2019-04-19 17:09 | NUR ---
PT UP IN CHAIR, DINNER TRAY IN ROOM. FAMILY MEMBER IN ROOM.
--- NOTE | 2019-04-19 19:00 | NUR ---
SHIFT ASSESSMENT COMPLETE SEE FLOW SHEET, PT AAOx4, C/O OF INCISIONAL PAIN, MORPHINE CORROSION CONTROL FITTER REVIEWED WITH PT, CORRECT DEMONSTRATION RETURNED, NO ACUTE DISTRESS NOTED, VSS, WILL CONTINUE TO ASSESS
--- NOTE | 2019-04-19 23:00 | NUR ---
REASSESSMENT COMPLETE SEE FLOW SHEET, PT RESTING IN BED, TCDB COMPLETED WITH I/S, NO ACUTE CHANGES NOTED, VSS, WILL CONTINUE TO ASSESS
[2019-04-20] VITALS (15 sets, daily range): BP systolic 99–128; BP diastolic 59–78
--- NOTE | 2019-04-20 03:00 | NUR ---
REASSESSMENT COMPLETE SEE FLOW SHEET, NO ACUTE S/S OF DISTRESS NOTED, VSS, WILL CONTINUE TO MONITOR
--- NOTE | 2019-04-20 06:00 | NUR ---
PT OOB TO CHAIR WITH MINIMAL ASSIST, VSS
--- NOTE | 2019-04-20 07:00 | NUR ---
REPORT RECIEVED, PT UP IN CHAIR, AAOX4. TRACE EDEMA NOTED IN LOWER EXTREMETIES, LEFT SUBCLAVIAN IV CDI, INFUSING, SEE IV FLOWSHEET. LEFT LAT SIDE INCISION SITE DRESSING CDI, LEFT POSTERIOR SIDE INCISION SITE CDI, S1S2, NORMAL SINUS RHYTHM.
--- NOTE | 2019-04-20 09:37 | NUR ---
PATIENT AMBULATING WITH THERAPY
[2019-04-20] MEDS ORDERED: ASPIRIN EC81 M1 PO (11:38)
[2019-04-20] MEDS ORDERED: PERCOCET 10-321 EAC1 PO (11:40)
[2019-04-20] MEDS ORDERED: MIRALAX17 GM PO (11:40)
--- NOTE | 2019-04-20 12:35 | NUR ---
Nutrition Follow Up: Chart reviewed Diet: AHA PO Intake: 80% meal avg I<O BM: 04/19/19 Wt loss noted Labs and meds reviewed Rec continue current diet. RD following.
--- NOTE | 2019-04-20 16:53 | MORECARE ---
CASE MANAGEMENT DISCHARGE SUMMARY PATIENT: DIXON RIZO UNIT: [id number] ADM DATE: 04/13/19 AGE: 63 : 51 SEX: M ROOM/BED: D.[facility] AUTHOR: SHAZIA,DOC PHYSICIAN: REFERRING PHYSICIAN: SHAJI REYNAGA MD DATE OF SERVICE: 04/20/19 Discharge Plan Patient Name: DIXON RIZO Facility: [facility]:[place] : 1955 Planned Disposition: Home with Home Health Anticipated Discharge Date: Discharge Date: 04/20/2019 Expected LOS: Initial Reviewer: [email or web address] Initial Review Date: 04/17/2019 Generated: 04/20/19 5:52 pm DCP- Discharge Planning Updated by [email or web address]: Charlene De La Cruz on 04/18/19 5:[address] CM contacted Dr. Varsha Hines MD [phone] to see if she would follow patient on Home Health. Rose Marie with their office stated that patient will need an office appointment after discharge and at that time if Dr. Varsha Hines, sees need for home health she will order it then. CM will let patient and nursing know this information. CM will continue to follow and assist as needed with discharge planning / needs. DCP- Discharge Planning Updated by [email or web address]: Charlene De La Cruz on 04/17/19 6:[address] Patient Name: DIXON RIZO Admission Status: Elective Accout number: [id number] Admission Date: 04-13-2019 : 1955 Admission Diagnosis: Attending: SHAJI REYNAGA Current LOS: 4 Anticipated DC Date: Planned Disposition: Home with Home Health Primary Insurance: [employer] OUT OF STATE Discharge Planning Comments: CM met with patient and significant other (Francesca) at bedside after explaining CM role and obtaining verbal consent. Patient lives at home with Francesca and plans to return there upon discharge. Patient feels this would be a safe discharge. CM discussed availability / needs of home health and medical equipment. Patient states that he would feel better if he had Home Health at discharge. CM will get in contact with PCP to see if she will follow HH. CM will get PHILLIP in am for HH. Patient denies any discharge needs at this time. Patient states he will have Francesca drive him home upon discharge. CM will continue to follow and assist as needed with discharge planning / needs. Media Job Titles: Charlene CHACON - Discharge Planning Initial Assessment Updated by [email or web address]: Charlene De La Cruz on 04/17/19 7:23 pm * Is the patient Alert and Oriented? Yes * How many steps to enter\exit or inside your home? * PCP Varsha Hines MD * Pharmacy [facility] * Preadmission Environment Home with Family * ADLs Independent * Other Equipment cane, walking stick * List name and contact numbers for known caregivers / representatives who currently or will assist patient after discharge: Francesca Ramirez - significant other- [phone] * Verbal permission to speak to the caregivers and representatives has been obtained from the patient. Yes * Community resources currently utilized None * Additional services required to return to the preadmission environment? No * Can the patient safely return to the preadmission environment? Yes * Has this patient been hospitalized within the prior 30 days at any hospital? Yes Coverage Notice Reviewer: [id number] - Charlene De La Cruz Notice Issued Date-Time: 04/20/2019 13:15 Notice Type: IM Discharge Notice Notice Delivered To: Patient Relationship to Patient: Self Payroll Machine Operator Name: Delivery Method: HAND - Hand Delivered Gogo Days: Prior Verbal Notification: Recipient Understood Notice: Yes Recipient Signature: Yes Med Rec Note Co-signed by Attending: Coverage Notice Comment: Last DP export: 04/18/19 5:14 p Patient Name: DIXON RIZO Page 40299 at 1653 All edits/amendments must be made on the electronic document DICTATION DATE: 04/20/191651 CAMPUS RECRUITING INTERNSHIP: JOSSELIN 04/20/191651 RPT#: [id number] DC DATE:04/20/19 STATUS: DIS IN [facility] [address] [place] [address] END OF REPORT
--- NOTE | 2019-04-20 17:23 | MORECARE ---
CASE MANAGEMENT DISCHARGE SUMMARY PATIENT: DIXON RIZO UNIT: [id number] ADM DATE: 04/13/19 AGE: 63 : [birth year] SEX: M ROOM/BED: D[facility] AUTHOR: SHAZIA,DOC PHYSICIAN: REFERRING PHYSICIAN: SHAJI REYNAGA MD DATE OF SERVICE: 04/20/19 Discharge Plan Patient Name: DIXON RIZO Facility: [facility]:[place] : 1955 Planned Disposition: Home with Home Health Anticipated Discharge Date: Discharge Date: 04/20/2019 Expected LOS: Initial Reviewer: [email or web address] Initial Review Date: 04/17/2019 Generated: 04/20/19 6:22 pm Comments DCP- Discharge Planning Updated by [email or web address]: Charlene De La Cruz on 04/20/19 4:[address] Patient Name: DIXON RIZO Encounter No: [id number] : 1955 Primary Insurance: [employer] OUT OF STATE Anticipated DC Date: Planned Disposition: Home with Home Health External Planned Provider: : D/C IMM EXPLAINED AND SIGNED 04/20/19 @ 1315 PATIENT TO SEE PCP ON TUESDAY FOR HOME HEALTH ORDERS DCP follow-up note: Patient and family in agreement with discharge plan. No changes to plan. Case management will follow and assist as needed. Charlene De La Cruz DCP- Discharge Planning Updated by [email or web address]: Charlene De La Cruz on 04/18/19 5:[address] CM contacted Dr. Varsha Hines MD [phone] to see if she would follow patient on Home Health. Rose Marie with their office stated that patient will need an office appointment after discharge and at that time if Dr. Varsha Hines, sees need for home health she will order it then. CM will let patient and nursing know this information. CM will continue to follow and assist as needed with discharge planning / needs. DCP- Discharge Planning Updated by [email or web address]: Charlene De La Cruz on 04/17/19 6:[address] Patient Name: DIXON RIZO Admission Status: Elective Accout number: [id number] Admission Date: 04-13-2019 : 1955 Admission Diagnosis: Attending: SHAJI REYNAGA Current LOS: 4 Anticipated DC Date: Planned Disposition: Home with Home Health Primary Insurance: [employer] OUT OF STATE Discharge Planning Comments: CM met with patient and significant other (Francesca) at bedside after explaining CM role and obtaining verbal consent. Patient lives at home with Francesca and plans to return there upon discharge. Patient feels this would be a safe discharge. CM discussed availability / needs of home health and medical equipment. Patient states that he would feel better if he had Home Health at discharge. CM will get in contact with PCP to see if she will follow HH. CM will get PHILLIP in am for HH. Patient denies any discharge needs at this time. Patient states he will have Francesca drive him home upon discharge. CM will continue to follow and assist as needed with discharge planning / needs. Senior Engineering Team Leader: Charlene CHACON - Discharge Planning Initial Assessment Updated by [email or web address]: Charlene De La Cruz on 04/17/19 7:23 pm * Is the patient Alert and Oriented? Yes * How many steps to enter\exit or inside your home? * PCP Varsha Hines MD * Pharmacy [facility] * Preadmission Environment Home with Family * ADLs Independent * Other Equipment cane, walking stick * List name and contact numbers for known caregivers / representatives who currently or will assist patient after discharge: Francesca Ramirez - significant other- [phone] * Verbal permission to speak to the caregivers and representatives has been obtained from the patient. Yes * Community resources currently utilized None * Additional services required to return to the preadmission environment? No * Can the patient safely return to the preadmission environment? Yes * Has this patient been hospitalized within the prior 30 days at any hospital? Yes Coverage Notice Reviewer: [id number] - Charlene De La Cruz Notice Issued Date-Time: 04/20/2019 13:15 Notice Type: IM Discharge Notice Notice Delivered To: Patient Relationship to Patient: Self Master Control Operator Name: Delivery Method: HAND - Hand Delivered Gogo Days: Prior Verbal Notification: Recipient Understood Notice: Yes Recipient Signature: Yes Med Rec Note Co-signed by Attending: Coverage Notice Comment: Last DP export: 04/20/19 3:53 p Patient Name: DIXON RIZO Page [id number] at 1723 All edits/amendments must be made on the electronic document DICTATION DATE: 04/20/191721 SALES SERVICE ASSISTANT: JOSSELIN 04/20/191721 RPT#: [id number] DC DATE:04/20/19 STATUS: DIS IN [facility] [address] [place] [place] [address] END OF REPORT
--- NOTE | 2019-04-20 17:32 | MORECARE ---
CASE MANAGEMENT DISCHARGE SUMMARY PATIENT: DIXON RIZO UNIT: [id number] ADM DATE: 04/13/19 AGE: 63 : [birth year] SEX: M ROOM[facility]BED: D[facility] AUTHOR: SHAZIA,DOC PHYSICIAN: REFERRING PHYSICIAN: SHAJI REYNAGA MD DATE OF SERVICE: 04/20/19 Discharge Plan Patient Name: DIXON RIZO Facility: [facility]:[place] : 1955 Planned Disposition: Home with Home Health Anticipated Discharge Date: Discharge Date: 04/20/2019 Expected LOS: Initial Reviewer: [email or web address] Initial Review Date: 04/17/2019 Generated: 04/20/19 6:32 pm Comments DCP- Discharge Planning Updated by [email or web address]: Charlene De La Cruz on 04/20/19 4:[address] LATE ENTRY 04/19/19 @ 1330 CM spoke with patient's PCP Dr. Morel office reports that patient will need to be seen prior to Home Health orders. Appointment for TuesdayApril 23 @ 1100. Patient notified of apt and nursing aware also. CM will continue to follow and assist as needed with discharge planning / needs. DCP- Discharge Planning Updated by [email or web address]: Charlene De La Cruz on 04/20/19 4:[address] Patient Name: DIXON RIZO Encounter No: [id number] : 1955 Primary Insurance: [employer] OUT OF [facility] Anticipated DC Date: Planned Disposition: Home with Home Health External Planned Provider: : D/C IMM EXPLAINED AND SIGNED 04/20/19 @ 1315 PATIENT TO SEE PCP ON TUESDAY FOR HOME HEALTH ORDERS DCP follow-up note: Patient and family in agreement with discharge plan. No changes to plan. Case management will follow and assist as needed. Charlene De La Cruz DCP- Discharge Planning Updated by [email or web address]: Charlene De La Cruz on 04/18/19 5:[address] CM contacted Dr. Varsha Hines MD [phone] to see if she would follow patient on Home Health. Rose Marie with their office stated that patient will need an office appointment after discharge and at that time if Dr. Varsha Hines, sees need for home health she will order it then. CM will let patient and nursing know this information. CM will continue to follow and assist as needed with discharge planning / needs. DCP- Discharge Planning Updated by [email or web address]: Charlene De La Cruz on 04/17/19 6:[address] Patient Name: DIXON RIZO Admission Status: Elective Accout number: [id number] Admission Date: 04-13-2019 : 1955 Admission Diagnosis: Attending: SHAJI REYNAGA Current LOS: 4 Anticipated DC Date: Planned Disposition: Home with Home Health Primary Insurance: [employer] OUT OF STATE Discharge Planning Comments: CM met with patient and significant other (Francesca) at bedside after explaining CM role and obtaining verbal consent. Patient lives at home with Francesca and plans to return there upon discharge. Patient feels this would be a safe discharge. CM discussed availability / needs of home health and medical equipment. Patient states that he would feel better if he had Home Health at discharge. CM will get in contact with PCP to see if she will follow HH. CM will get PHILLIP in am for HH. Patient denies any discharge needs at this time. Patient states he will have Francesca drive him home upon discharge. CM will continue to follow and assist as needed with discharge planning / needs. Security Expert: Charlene De La Cruz DCA - Discharge Planning Initial Assessment Updated by [email or web address]: Charlene De La Cruz on 04/17/19 7:23 pm * Is the patient Alert and Oriented? Yes * How many steps to enter\exit or inside your home? * PCP Varsha Hines MD * Pharmacy [facility] * Preadmission Environment Home with Family * ADLs Independent * Other Equipment cane, walking stick * List name and contact numbers for known caregivers / representatives who currently or will assist patient after discharge: Francesca Ramirez - significant other- [phone] * Verbal permission to speak to the caregivers and representatives has been obtained from the patient. Yes * Community resources currently utilized None * Additional services required to return to the preadmission environment? No * Can the patient safely return to the preadmission environment? Yes * Has this patient been hospitalized within the prior 30 days at any hospital? Yes Coverage Notice Reviewer: [email or web address] - Charlene De La Cruz Notice Issued Date-Time: 04/20/2019 13:15 Notice Type: IM Discharge Notice Notice Delivered To: Patient Relationship to Patient: Self Pipe Inspector Name: Delivery Method: HAND - Hand Delivered Gogo Days: Prior Verbal Notification: Recipient Understood Notice: Yes Recipient Signature: Yes Med Rec Note Co-signed by Attending: Coverage Notice Comment: Last DP export: 04/20/19 4:23 p Patient Name: DIXON RIZO Page [id number] at 1732 All edits/amendments must be made on the electronic document DICTATION DATE: 04/20/191731 RESIDENTIAL PROPERTY MANAGER: JOSSELIN 04/20/191731 RPT#: [id number] DC DATE:04/20/19 STATUS: DIS IN [facility] [address] [place] [address] END OF REPORT
== END 2019-04-20 14:50 | disposition home health service (06) | DRG 165 ==
LOC: D.CVICU 04-13 05:00 → D.SDCHOLD 04-13 05:00 → D.CVICU 04-13 12:18
PROVIDERS: Thoracic Surgery (Cardiothoracic Vascular Surgery); ADMIT Internal Medicine Cardiovascular Disease; ATTEND Internal Medicine Cardiovascular Disease
PROC: 0BJ08ZZ Inspection of Tracheobronchial Tree, Via Natural or Artificial Opening Endoscopic (ICD-10-PCS; 2019-04-13)
PROC: 0BTJ0ZZ Resection of Left Lower Lung Lobe, Open Approach (ICD-10-PCS; principal; 2019-04-13 07:30)
PROC: 07T70ZZ Resection of Thorax Lymphatic, Open Approach (ICD-10-PCS; 2019-04-13 07:30)
DX: C34.32 Malignant neoplasm of lower lobe, left bronchus or lung (principal); J44.9 Chronic obstructive pulmonary disease, unspecified; R59.0 Localized enlarged lymph nodes; F17.200 Nicotine dependence, unspecified, uncomplicated; R53.1 Weakness; R06.00 Dyspnea, unspecified

== ENCOUNTER → 2019-05-03 09:32 | Outpatient (CLI) | payer BC, MEDICARE ==
[2019-04-17 17:42] VITALS: BMI 27.3
[~2019-05-03 09:32] MED LIST changes: +ASPIRIN EC81 M1 PO; +KLONOPIN1 MG PO; +MIRALAX17 GM PO; +PERCOCET 10-321 EAC1 PO
== END | disposition home or self-care (01) ==
LOC: D.RAD 09:32
PROVIDERS: ATTEND Internal Medicine Cardiovascular Disease
DX: D49.1 Neoplasm of unspecified behavior of respiratory system (principal)

== ENCOUNTER → 2021-01-02 08:54 | Outpatient (CLI) | payer MEDICARE ==
[2019-04-17 17:42] VITALS: BMI 27.3
== END | disposition home or self-care (01) ==
LOC: D.RAD 08:54
PROVIDERS: ATTEND Internal Medicine Hematology & Oncology
DX: C34.32 Malignant neoplasm of lower lobe, left bronchus or lung (principal); C77.1 Secondary and unspecified malignant neoplasm of intrathoracic lymph nodes